=== PATIENT | female | born 1970 | race Caucasian/White ===

== ENCOUNTER → 2017-02-06 | Outpatient (CLI) | payer OTHER ==
[2017-02-06 19:04] LABS: ALT 71 U/L (9-52); AST 74 U/L (14-36); Alkaline Phosphatase 103 U/L (38-126); Anion Gap 12 mmol/L; Blood Urea Nitrogen 13 mg/dL (7-17); Calcium 9.3 mg/dL (8.4-10.2); Carbon Dioxide 25 mmol/L (22-30); Chloride 104 mmol/L (98-107); Cholesterol 179 mg/dL (<200); Glucose 83 mg/dL (74-99); HDL Cholesterol 51 mg/dL (40-60); Non-African American GFR(MDRD) >60 (>60 ml/min/1.73 sqM); Sodium 141 mmol/L (137-145); Total Bilirubin 0.3 mg/dL (0.2-1.3); Total Protein 7.1 g/dL (6.3-8.2); Triglycerides 94 mg/dL (<150)
[2017-02-06 19:48] LABS: Vitamin B12 686 pg/mL (239-931)
[2017-02-06 22:42] LABS: Basophils % (A) 1 %; CH 21.8; CHCM 28.3; Eosinophils # (A) 0.6 k/uL (0-0.7); Eosinophils % (A) 11 %; HCT 32.6 % (34.0-46.0); HDW 3.03; Hypochromasia Marked; Luc # (Auto) 0.09; Luc % (Auto) 2; Lymphocytes # (A) 1.6 k/uL (1.0-4.8); Lymphocytes % (A) 32 %; MCH 23.6 pg (25.0-35.0); MCHC 30.5 g/dL (31.0-37.0); MCV 77.3 fL (80.0-100.0); Mean Platelet Volume 7.7; Microcytosis Slight; Monocytes # (A) 0.3 k/uL (0-1.0); Monocytes % (A) 6 %; Neutrophils # (A) 2.4 k/uL (1.3-7.7); Neutrophils % (A) 49 %; RBC 4.23 m/uL (3.80-5.40); RDW 15.5 % (11.5-15.5); WBC (Perox) 5.28
[2017-02-06 22:51] LABS: Polychromasia Present
== END | disposition home or self-care (01) ==
LOC: MMGSC 17:43
PROVIDERS: ATTEND Family Medicine
DX: R82.90 Unspecified abnormal findings in urine (principal)
CPT/HCPCS: 36415; 80053; 80061; 82306; 82607; 84439; 84443; 85025; 87086

== ENCOUNTER → 2017-02-22 | Outpatient (CLI) | payer OTHER ==
[2017-02-22 19:12] LABS: Iron 29 ug/dL (37-170)
[2017-02-22 19:23] LABS: % Iron Saturation 6.2 % (20-50); Total Iron Binding Capacity 471 ug/dL (265-497)
[2017-02-22 20:33] LABS: Hepatitis B Surface Ag Index 0.07
[2017-02-22 20:38] LABS: Hepatitis B Core IgM Index 0.05
[2017-02-22 20:50] LABS: Hepatitis C Virus IgG Ab Negative (Negative)
== END ==
LOC: MMGSC 16:48
PROVIDERS: ATTEND Family Medicine
DX: R79.89 Other specified abnormal findings of blood chemistry (principal)
CPT/HCPCS: 36415; 80074; 82103; 82390; 82728; 83516; 83540; 83550

== ENCOUNTER → 2017-04-27 | Outpatient (CLI) | payer OTHER ==
[2017-04-27 21:09] LABS: Anisocytosis Slight; CH 24.9; CHCM 29.7; HCT 33.3 % (34.0-46.0); HDW 2.98; HGB 9.9 gm/dL (11.4-16.0); Hypochromasia Marked; MCH 25.1 pg (25.0-35.0); MCHC 29.9 g/dL (31.0-37.0); Mean Platelet Volume 8.4; RBC 3.96 m/uL (3.80-5.40); RDW 16.4 % (11.5-15.5); WBC 6.9 k/uL (3.8-10.6); WBC (Perox) 7.75
[2017-04-27 21:33] LABS: Add Differential Manual Differential
[2017-04-27 21:37] LABS: Manual Review Performed; Nucleated Red Blood Cells 0 /100 WBC (0-0); Ovalocytes Present; Total Cells Counted 100
== END ==
LOC: MMGSC 15:47
PROVIDERS: ATTEND Family Medicine
DX: N92.0 Excessive and frequent menstruation with regular cycle (principal); E04.9 Nontoxic goiter, unspecified
CPT/HCPCS: 36415; 84439; 84443; 85025

== ENCOUNTER → 2017-08-27 | Outpatient (CLI) | payer OTHER ==
[2017-08-27 19:13] LABS: Anisocytosis Slight; Basophils % (A) 1 %; Eosinophils # (A) 0.9 k/uL (0-0.7); Eosinophils % (A) 15 %; HCT 35.6 % (34.0-46.0); HGB 10.3 gm/dL (11.4-16.0); Hypochromasia Marked; Lymphocytes # (A) 1.3 k/uL (1.0-4.8); Lymphocytes % (A) 22 %; MCH 22.5 pg (25.0-35.0); MCHC 28.9 g/dL (31.0-37.0); Mean Platelet Volume 7.6; Microcytosis Slight; Monocytes # (A) 0.3 k/uL (0-1.0); Monocytes % (A) 6 %; Neutrophils # (A) 3.3 k/uL (1.3-7.7); Neutrophils % (A) 55 %; Platelet Count 348 k/uL (150-450); RBC 4.56 m/uL (3.80-5.40); RDW 17.2 % (11.5-15.5)
[2017-08-27 19:26] LABS: T4, Free (Free Thyroxine) 0.93 ng/dL (0.78-2.19)
== END | disposition home or self-care (01) ==
LOC: MMGSC 15:51
PROVIDERS: ATTEND Family Medicine
DX: E03.9 Hypothyroidism, unspecified (principal); D64.9 Anemia, unspecified; R63.5 Abnormal weight gain
CPT/HCPCS: 36415; 84439; 84443; 85025

== ENCOUNTER → 2017-11-23 | Outpatient (CLI) | payer OTHER ==
[2017-11-23 20:39] LABS: Basophils % (A) 0 %; Eosinophils # (A) 1.2 k/uL (0-0.7); Eosinophils % (A) 17 %; HCT 31.2 % (34.0-46.0); HGB 9.3 gm/dL (11.4-16.0); Hypochromasia Marked; Lymphocytes # (A) 1.7 k/uL (1.0-4.8); Lymphocytes % (A) 24 %; MCH 22.2 pg (25.0-35.0); MCHC 29.7 g/dL (31.0-37.0); MCV 74.7 fL (80.0-100.0); Microcytosis Slight; Monocytes # (A) 0.5 k/uL (0-1.0); Monocytes % (A) 7 %; Neutrophils # (A) 3.6 k/uL (1.3-7.7); Neutrophils % (A) 51 %; Platelet Count 348 k/uL (150-450); Poikilocytosis Slight; RBC 4.18 m/uL (3.80-5.40); RDW 14.9 % (11.5-15.5); WBC 7.1 k/uL (3.8-10.6)
[2017-11-23 21:00] LABS: T4, Free (Free Thyroxine) 1.12 ng/dL (0.78-2.19)
[2017-11-24 00:37] LABS: Vitamin D 25 Hydroxy 17.2 ng/mL (30.0-100.0)
== END | disposition home or self-care (01) ==
LOC: MMGSC 16:49
PROVIDERS: ATTEND Family Medicine
DX: E03.9 Hypothyroidism, unspecified (principal); J02.9 Acute pharyngitis, unspecified; R53.83 Other fatigue
CPT/HCPCS: 36415; 82306; 82607; 84439; 84443; 85025; 86308

== ENCOUNTER → 2018-03-20 | Outpatient (CLI) | payer OTHER ==
--- NOTE | 2018-03-20 08:24 | US ---
EXAMINATION TYPE: US thyroid st tissue head/neck DATE OF EXAM: 03/20/2018 COMPARISON: NONE CLINICAL HISTORY: E03.9 Hypothyroidism,E06.3 Autoimmune thyroiditis. Pt states difficulty swallowing, on thyroid medications x 1 year GLAND SIZE: Right Lobe: 4.8 x 2.2 x 2.3 cm Overall Parenchyma: heterogenous Left Lobe: 4.9 x 2.0 x 1.6 cm Overall Parenchyma: heterogeneous Isthmus Thickness: 0.5 cm Bilateral neck scanned, lymph node chain right lateral neck with largest node AP measurement= 0.5 cm. Bilateral thyroid grossly heterogeneous. IMPRESSION: Heterogeneous thyroid gland could represent underlying thyroiditis. Gland appears enlarged.
[2018-03-20 08:37] LABS: T4, Free (Free Thyroxine) 0.92 ng/dL (0.78-2.19)
== END | disposition home or self-care (01) ==
LOC: RADUSWWP 06:58
PROVIDERS: ATTEND Internal Medicine Endocrinology, Diabetes & Metabolism
DX: E04.0 Nontoxic diffuse goiter (principal); E03.9 Hypothyroidism, unspecified; E06.3 Autoimmune thyroiditis
CPT/HCPCS: 36415; 76536; 84439; 84443

== ENCOUNTER 2018-07-05 07:33 | Day surgery (SDC) | payer OTHER ==
[2018-07-03 14:58] VITALS: BMI 29.7
[~2018-07-05 07:33] MED LIST: LACTATED RINGERS 1,000 ML IV SCH
[2018-07-05 07:50] VITALS: RESP 18; TEMP 97.2
[2018-07-05] MEDS ORDERED: LIDOCAINE 1% 20 ML VIAL (10MG/ML) FOR IV START INTRADERMA ONE (07:53)
[2018-07-05] MEDS ORDERED: PROPOFOL 10 MG/ML 20 ML VIAL IV ONE (07:59)
--- NOTE | 2018-07-05 08:24 | P.PCN ---
Date of Procedure: 07/05/18 Procedure(s) Performed: Brief history: Patient is a pleasant 48-year-old white female, scheduled for an elective upper endoscopy as well as colonoscopy as a part of evaluation of GERD and iron deficiency anemia. Procedure performed: Esophagogastroduodenoscopy with biopsy Colonoscopy Preoperative diagnosis: GERD/iron deficiency anemia [place] [facility] [place]: After informed consent was obtained from the patient was brought into the endoscopy unit and IV sedation was administered by anesthesia under continuous monitoring. Initially upper endoscopy was done. The Olympus GF 160 video endoscope was inserted inserted into the mouth and esophagus intubated without any difficulty and was gradually advanced into the stomach and duodenum and carefully examined. The bulb and second part of the duodenum appeared normal. Multiple biopsies were done from the duodenum to rule out celiac disease. The scope was then withdrawn into the stomach adequately insufflated with air and upon careful examination the antrum had mild gastritis and biopsies were done from this area.. There was a 1 cm gastric ulcer in the fundus of the stomach which was biopsied. The rest of the body, cardia and fundus appeared normal. The scope was then withdrawn into the esophagus. The GE junction was located at 35 cm to the incisors. There was a moderate size hiatal hernia with multiple Can erosions identified. The GE junction had linear erosions or ulcerations in the distal esophagus consistent with LA grade C reflux esophagitis. Rest of the esophagus appeared normal. Patient tolerated the procedure well. At this time the patient continued to remain sedation. Initial digital rectal examination was normal. Olympus CF 160 video colonoscope was then inserted into the rectum and gradually advanced to the cecum without any difficulty. Careful examination was performed as the scope was gradually being withdrawn. The prep was excellent. The cecum, ascending colon, transverse colon, descending colon, sigmoid colon and rectum appeared normal. Retroflexion was performed in the rectum and no lesions were noted. Patient tolerated the procedure well. Impression: 1. Upper endoscopy revealed: a) linear erosions in the distal esophagus consistent with LA grade C reflux esophagitis b)1 cm gastric ulcer in the fundus of the stomach c)Small to moderate size hiatal hernia with Can erosions 2. Colonoscopy was essentially within normal limits with no evidence of colitis or colorectal neoplasia Recommendations: Findings of this examination were discussed with the patient as well as her family. She was advised to follow with the biopsy results. She'll be started on Prilosec 20 mg twice daily and was educated about antireflux measures. she will continue with iron supplements daily and have CBC monitored on a frequent basis. She will be seen in the office in 6 weeks.
[2018-07-05 08:43] VITALS: BP 105/70; PULSE 64
== END 2018-07-05 09:15 | disposition home or self-care (01) ==
LOC: ORWHC2ENDO 07:33
PROVIDERS: ATTEND Internal Medicine Gastroenterology
DX: K29.50 Unspecified chronic gastritis without bleeding (principal); K25.9 Gastric ulcer, unspecified as acute or chronic, without hemorrhage or perforation; K44.9 Diaphragmatic hernia without obstruction or gangrene; K22.10 Ulcer of esophagus without bleeding; K20.9 Esophagitis, unspecified; D50.9 Iron deficiency anemia, unspecified; E07.9 Disorder of thyroid, unspecified; Z79.890 Hormone replacement therapy; Z79.899 Other long term (current) drug therapy
CPT/HCPCS: 81025; 88305; 45378; 43239; J2704

== ENCOUNTER → 2019-04-16 | Outpatient (CLI) | payer OTHER ==
--- NOTE | 2019-04-16 11:25 | CT ---
EXAMINATION TYPE: CT angio chest DATE OF EXAM: 04/16/2019 COMPARISON: NONE HISTORY: SOB, elevated d dimer CT DLP: 342.3 mGycm. Automated Exposure Control for Dose Reduction was Utilized. CONTRAST: CTA scan of the thorax is performed with IV Contrast, patient injected with 100 mL of Isovue 370, pul monary embolism protocol. MIP Images are created on CT scanner and reviewed. FINDINGS: LUNGS: Some patchy dependent atelectasis in the bilateral lower lobes. No suspicious nodules or brigid s. No pleural effusion or pneumothorax seen bilaterally. No suspicious focal consolidation. MEDIASTINUM: There is suboptimal study with near equal contrast a right left heart systems and some h eterogeneity but no CT evidence for acute pulmonary embolism. There are no greater than 1 cm hilar o r mediastinal lymph nodes. No cardiomegaly or pericardial effusion is seen. Involving type arch is seen which is normal variant. Small to moderate size hiatal hernia. OTHER: No additional significant abnormality is seen. IMPRESSION: No CT evidence for acute pulmonary embolism. No suspicious acute pulmonary process.
== END | disposition home or self-care (01) ==
LOC: RADCTMAIN 10:37
PROVIDERS: ATTEND Family Medicine
DX: R06.02 Shortness of breath (principal); R79.1 Abnormal coagulation profile
CPT/HCPCS: 71275; Q9967

== ENCOUNTER → 2019-07-04 | Outpatient (CLI) | payer OTHER ==
--- NOTE | 2019-07-04 18:06 | US ---
EXAMINATION TYPE: US kidneys/renal and bladder DATE OF EXAM: 07/04/2019 COMPARISON: NONE CLINICAL HISTORY: R35.0 Urinary frequency. Urinary urgency. EXAM MEASUREMENTS: Right Kidney: 11.4 x 5.1 x 4.3 cm Left Kidney: 11.0 x 5.2 x 4.4 cm Post Void Residual Volume: 0.7 mL Right Kidney: No hydronephrosis, nephrolithiasis or masses seen Left Kidney: No hydronephrosis, nephrolithiasis or masses seen Bladder: not fully distended/prepped Bilateral Jets seen: yes. Bladder evaluation is Limited by incomplete distention Normal Post Void Residual: yes Incidental findings of couple of Nabothian cysts in enlarged uterus with larger Nabothian cyst in cer vix = 1.8 x 2.3 x 1.9cm and smaller Nabothian cyst = 1.6 x 1.6 x 1.5cm IMPRESSION: No hydronephrosis or nephrolithiasis. Incidental note made of nabothian cysts as discussed above.
== END | disposition home or self-care (01) ==
LOC: RADUSWWP 16:07
PROVIDERS: ATTEND Urology
DX: R35.0 Frequency of micturition (principal)
CPT/HCPCS: 76770

== ENCOUNTER → 2022-11-22 | Day surgery (SDC) | payer BC, OTHER ==
[2022-11-17 16:16] VITALS: BMI 24.6
[~2022-11-22] MED LIST changes: +ACETAMINOPHEN TAB 500 MG TAB PO ONE; +ALPRAZolam 0.25 MG TAB PO PRN; +ALPRAZolam 0.5 MG TAB PO PRN; +ASPIRIN 325 MG TAB PO ONE; +ATORVASTATIN 80 MG TAB PO ONE; +HEPARIN SODIUM 1,000 UN/ML (10ML VL) IVP ONE; +HEPARIN SODIUM 1,000 UN/ML (10ML VL) ONE; +HEPARIN SODIUM,PORCINE 10,000 UNIT in SODIUM CHLORIDE 0.9% 1,000 ML IRRIGATION PRN; +HEPARIN SODIUM,PORCINE 2,500 UNIT in SODIUM CHLORIDE 0.9% 250 ML IRRIGATION PRN; +IOPAMIDOL-370 125ML BTL INJ ONE; -LACTATED RINGERS 1,000 ML IV SCH; +LIDOCAINE 1% PF 10 MG/ML (5 ML AMP) SQ ONE; +NITROGLYCERIN SL TABS 0.4 MG TAB SUBLINGUAL PRN; +SODIUM CHLORIDE 0.9% 1,000 ML IV ONE; +SODIUM CHLORIDE 0.9% 1,000 ML in EMPTY BAG 1 BAG IV SCH; +VERAPAMIL 2.5 MG/ML 2 ML AMP ONE; +VERAPAMIL SYRINGE (5 MG/10 ML) INTRAARTER ONE; +fentaNYL (PF) 50 MCG/ML 2 ML AMP IVP ONE; +fentaNYL (PF) 50 MCG/ML 2 ML AMP ONE
[2022-11-22 10:24] VITALS: RESP 16; TEMP 97.8
[2022-11-22 10:43] LABS: African American GFR (CKD) >90 (>60 ml/min/1.73 sqM); Anion Gap 6 mmol/L; Blood Urea Nitrogen 14 mg/dL (7-17); Calcium 8.7 mg/dL (8.4-10.2); Carbon Dioxide 28 mmol/L (22-30); Chloride 100 mmol/L (98-107); Glucose 92 mg/dL (74-99); Non-African American GFR(CKD) >90 (>60 ml/min/1.73 sqM); Potassium 3.8 mmol/L (3.5-5.1); Sodium 134 mmol/L (137-145)
[2022-11-22 11:05] LABS: Basophils % (A) 1 %; Eosinophils # (A) 0.6 k/uL (0-0.7); Eosinophils % (A) 10 %; HCT 37.8 % (34.0-46.0); HGB 12.7 gm/dL (11.4-16.0); Lymphocytes # (A) 1.4 k/uL (1.0-4.8); Lymphocytes % (A) 23 %; MCH 28.4 pg (25.0-35.0); MCHC 33.5 g/dL (31.0-37.0); MCV 84.8 fL (80.0-100.0); Mean Platelet Volume 7.1; Monocytes # (A) 0.3 k/uL (0-1.0); Monocytes % (A) 5 %; Neutrophils # (A) 3.7 k/uL (1.3-7.7); Neutrophils % (A) 60 %; Platelet Count 363 k/uL (150-450); Poikilocytosis Slight; RBC 4.46 m/uL (3.80-5.40); RDW 13.1 % (11.5-15.5); WBC 6.1 k/uL (3.8-10.6)
[2022-11-22] MEDS: MIDAZOLAM 2 MG/2 ML VIAL IVP ONE ×2 (13:09→13:14)
--- NOTE | 2022-11-22 13:46 | P.CARDCATH ---
Description of Procedure: PROCEDURES PERFORMED: Left heart catheterization, bilateral coronary angiography INDICATION: Continued chest pain and shortness breath with family history of CAD concerning for angina CONSENT:I have discussed the risks, benefits and alternative therapies for the above-mentioned procedure and for both sedation/analgesia as well as necessary blood product administration, if indicated, as they pertain to this patient. The patient has indicated understanding and acceptance of the risks and procedures discussed. PROCEDURE: After the risks, benefits and alternatives of the above mentioned procedure explained in detail with the patient, informed consent was obtained. Patient was taken to the catheterization lab and prepped and draped in usual fashion. 1% lidocaine was used to anesthetize the right radial artery. A 6- Liberian sheath was placed in the right radial artery using modified Seldinger technique. Left coronary angiography was performed with a 5-Liberian JL 3.5 catheter and right coronary angiography was performed with a 5-Liberian JR5 catheter in various views. A 5-Liberian FR5 catheter was inserted into the left ventricle and pressure measurements were obtained. The right radial sheath was removed and a TR band was placed with hemostasis achieved. The patient tolerated the procedure well. Patient was transported back to the post catheterization holding area in stable condition. Conscious Sedation: Patient was monitored under the direct supervision of myself for conscious sedation using Versed and fentanyl for a total duration of 10 minutes HEMODYNAMICS: Aorta: 112/76 LV: 110/5, LVEDP: 16 SELECTIVE CORONARY ARTERIOGRAPHY: LEFT MAIN: The left main is a large caliber vessel which bifurcates into the LAD and circumflex. There is no significant stenosis. LEFT ANTERIOR DESCENDING CORONARY ARTERY: LAD is a large caliber vessel which wraps around to the apex. There is no significant stenosis. LEFT CIRCUMFLEX CORONARY ARTERY: Left circumflex is a moderate caliber vessel without significant stenosis. RIGHT CORONARY ARTERY: The right coronary artery is a large caliber vessel which gives off a PDA and PLV branch and is the dominant vessel. There is no significant stenosis. FINAL IMPRESSION: 1. Normal coronary arteries as described above. 2. High normal left sided filling pressures PLAN: 1. Aggressive risk factor modification per most recent ACC/AHA guidelines. 2. Follow-up in the office in 1-2 weeks.
[2022-11-22 15:53] VITALS: BP 117/82; PULSE 65
== END ==
LOC: CATHCVL 10:03
PROVIDERS: ATTEND Internal Medicine
DX: R07.9 Chest pain, unspecified (principal)
CPT/HCPCS: 93458; 80048; 85025; C1769 ×2; C1894; J2250; J2001; J3010; J1644; Q9967

== ENCOUNTER 2023-08-23 07:55 | Day surgery (SDC) | payer BC, OTHER ==
[~2023-08-23 07:55] MED LIST changes: -ACETAMINOPHEN TAB 500 MG TAB PO ONE; -ALPRAZolam 0.25 MG TAB PO PRN; -ALPRAZolam 0.5 MG TAB PO PRN; -ASPIRIN 325 MG TAB PO ONE; -ATORVASTATIN 80 MG TAB PO ONE; -HEPARIN SODIUM 1,000 UN/ML (10ML VL) IVP ONE; -HEPARIN SODIUM 1,000 UN/ML (10ML VL) ONE; -HEPARIN SODIUM,PORCINE 10,000 UNIT in SODIUM CHLORIDE 0.9% 1,000 ML IRRIGATION PRN; -HEPARIN SODIUM,PORCINE 2,500 UNIT in SODIUM CHLORIDE 0.9% 250 ML IRRIGATION PRN; -IOPAMIDOL-370 125ML BTL INJ ONE; -LIDOCAINE 1% PF 10 MG/ML (5 ML AMP) SQ ONE; -NITROGLYCERIN SL TABS 0.4 MG TAB SUBLINGUAL PRN; -SODIUM CHLORIDE 0.9% 1,000 ML IV ONE; +SODIUM CHLORIDE 0.9% 1,000 ML IV SCH; -SODIUM CHLORIDE 0.9% 1,000 ML in EMPTY BAG 1 BAG IV SCH; -VERAPAMIL 2.5 MG/ML 2 ML AMP ONE; -VERAPAMIL SYRINGE (5 MG/10 ML) INTRAARTER ONE; -fentaNYL (PF) 50 MCG/ML 2 ML AMP IVP ONE; -fentaNYL (PF) 50 MCG/ML 2 ML AMP ONE
[2023-08-23] MEDS ORDERED: SODIUM CHLORIDE 0.9% 500 ML 500 ML IV ONE (08:04)
[2023-08-23 08:20] VITALS: BP 127/72; RESP 16; TEMP 97.4
[2023-08-23 10:27] VITALS: PULSE 70
--- NOTE | 2023-08-28 16:34 | P.EPPROC ---
- EP Procedure Note Electrophysiology Procedure Note: Diagnosis Recurrent presyncope Twelve-lead EKG shows sinus rhythm normal RI narrow QRS normal ST segments normal QT interval Tilt table test per protocol Baseline blood pressure 122/84 mmHg pulse rate 61 beats a minute Patient was turned to the 70 degrees per protocol No significant change in heart rate or blood pressure She complained of slight dizziness but her blood pressure and heart rate remain normal Very mild orthostasis observed upon assuming upright position, 10 mm drop which was transient Impression Normal twelve-lead EKG No evidence for neurocardiogenic syncope or dysautonomia 10 mm drop in blood pressure upon standing which was very brief. She was a little dizzy at that time Very mild transient orthostasis
== END 2023-08-23 10:02 | disposition home or self-care (01) ==
LOC: CATHEP 07:55
PROVIDERS: ATTEND Internal Medicine Clinical Cardiac Electrophysiology
DX: R55 Syncope and collapse (principal); Z82.49 Family history of ischemic heart disease and other diseases of the circulatory system; Z79.899 Other long term (current) drug therapy
CPT/HCPCS: 93660

== ENCOUNTER 2024-01-06 14:36 | Emergency (ER) | payer BC, OTHER ==
[2024-01-06 14:43] VITALS: BP 132/79; PULSE 75; RESP 18; TEMP 97.4
[2024-01-06 15:07] LABS: Anisocytosis Slight; Basophils # (A) 0.1 k/uL (0-0.2); Basophils % (A) 1 %; Eosinophils # (A) 0.5 k/uL (0-0.7); Eosinophils % (A) 10 %; HCT 28.4 % (34.0-46.0); HGB 7.6 gm/dL (11.4-16.0); Hypochromasia Marked; Lymphocytes % (A) 22 %; MCH 18.1 pg (25.0-35.0); MCHC 26.7 g/dL (31.0-37.0); MCV 67.7 fL (80.0-100.0); Mean Platelet Volume 8.5; Microcytosis Marked; Monocytes # (A) 0.3 k/uL (0-1.0); Monocytes % (A) 6 %; Neutrophils # (A) 2.7 k/uL (1.3-7.7); Neutrophils % (A) 58 %; Platelet Count 309 k/uL (150-450); Poikilocytosis Slight; RBC 4.19 m/uL (3.80-5.40); RDW 16.6 % (11.5-15.5); WBC 4.6 k/uL (3.8-10.6)
[2024-01-06 15:15] LABS: ALT 14 U/L (4-34); AST 35 U/L (14-36); African American GFR (CKD) >90 (>60 ml/min/1.73 sqM); Albumin 4.3 g/dL (3.5-5.0); Alkaline Phosphatase 89 U/L (38-126); Anion Gap 7 mmol/L; Blood Urea Nitrogen 15 mg/dL (7-17); Calcium 8.6 mg/dL (8.4-10.2); Carbon Dioxide 24 mmol/L (22-30); Chloride 107 mmol/L (98-107); Glucose 105 mg/dL (74-99); Non-African American GFR(CKD) >90 (>60 ml/min/1.73 sqM); Sodium 138 mmol/L (137-145); Total Bilirubin 0.5 mg/dL (0.2-1.3); Total Protein 6.6 g/dL (6.3-8.2)
[2024-01-06 15:20] LABS: Partial Thromboplastin Time 24.3 sec (22.0-30.0); Prothrombin Time 10.8 sec (10.0-12.5)
--- NOTE | 2024-01-06 15:33 | ED ---
Recheck HPI - General Chief Complaint: Recheck/Abnormal Lab/Rx Stated Complaint: Abn Labs Time Seen by Provider: 01/06/24 14:45 Source: patient Mode of arrival: ambulatory Limitations: no limitations - History of Present Illness Initial Comments: This patient is a 53-year-old woman with history of anemia, previously requiring transfusion, who presents with report that she was called and told that her hemoglobin was 6.4. She states that had been checked in the clinic as part of routine follow-up. She states she does get exertional dyspnea and light headedness. She has no chest pain, dyspnea, palpitations, diaphoresis at rest. She does have dark stools but she states she is taking an iron supplement. She has not noticed any other source of bleeding. She has previously followed with hematology and they told her they were not able to find the reason for her anemia. Complaint: abnormal lab Onset/Timin -: days(s) Returns Today for: Called Because of Abnormal Lab/Test Symptoms Since Prior Visit: no new symptoms Context: called for abnormal lab result Associated Symptoms: other (Exertional dyspnea/palpitations) - Related Data Home Medications Medication Instructions Recorded Confirmed ALPRAZolam [Xanax] 0.5 mg PO TID PRN 07/03/18 12/17/23 Ibuprofen [Motrin Ib] 600 mg PO DAILY PRN 07/03/18 12/17/23 Acetaminophen [Tylenol] 325 - 650 mg PO DIRECTED PRN 11/17/22 12/17/23 Gabapentin 400 mg PO BID 11/17/22 12/17/23 Isosorbide Mononitrate [Isosorbide 30 mg PO QAM 08/20/23 12/17/23 Mononitrate ER] QUEtiapine [SEROquel] 50 mg PO HS 08/20/23 12/17/23 Vilazodone HCl [Viibryd] 20 mg PO QAM 08/20/23 12/17/23 Albuterol Inhaler [Ventolin Hfa 1 - 2 puff INHALATION Q6H PRN 12/10/23 12/17/23 Inhaler] Ferrous Sulfate [Feosol] 325 mg PO DAILY 12/10/23 12/17/23 Pantoprazole Sodium 40 mg PO DAILY 12/10/23 12/17/23 buPROPion HCL [buPROPion HCL Xl] 150 mg PO QAM 12/10/23 12/17/23 Allergies Allergy/AdvReac Type Severity Reaction Status Date / Time No Known Allergies Allergy Verified 01/06/24 14:43 Review of Systems ROS Statement: Those systems with pertinent positive or pertinent negative responses have been documented in the HPI. ROS Other: All systems not noted in ROS Statement are negative. Constitutional: Denies: fever, chills, weakness Eyes: Denies: vision change Respiratory: Denies: cough, dyspnea Cardiovascular: Reports: dyspnea on exertion. Denies: chest pain, palpitations, orthopnea, edema, syncope Gastrointestinal: Reports: melena. Denies: abdominal pain, vomiting, diarrhea, hematochezia Genitourinary: Denies: dysuria, hematuria Musculoskeletal: Denies: back pain Skin: Denies: rash Neurological: Denies: headache, weakness Hematological/Lymphatic: Denies: easy bleeding Past Medical History Past Medical History: Asthma, GERD/Reflux, Supraventricular Tachycardia (SVT), Thyroid Disorder Additional Past Medical History / Comment(s): Please see Dr. Macias's H&P. Palpitations,vertigo and racing heart, DIFFICULTY SWALLOWING. ANEMIA. Sciaticia on occasion. History of Any Multi-Drug Resistant Organisms: MRSA Date of last positivie culture/infection: 02/08/21 MDRO Source:: MRSA FACE Past Surgical History: Cardiac Ablation, Section, Cholecystectomy, Heart Catheterization, Orthopedic Surgery Additional Past Surgical History / Comment(s): RT KNEE SX X 2, LT KNEE SX X1. RT ELBOW SX X 2. RT SHOULDER SX. EGD X3 Past Anesthesia/Blood Transfusion Reactions: No Reported Reaction Additional Past Anesthesia/Blood Transfusion Reaction / Comment(s): no problems w/ prior blood transfusion Past Psychological History: Anxiety, Depression, PTSD Smoking Status: Never smoker Past Alcohol Use History: None Reported Past Drug Use History: None Reported - Past Family History Mother Family Medical History: Coronary Artery Disease (CAD), CVA/TIA Additional Family Medical History / Comment(s): MOTHER OF STROKE. General Exam Limitations: no limitations General appearance: alert, in no apparent distress Head exam: Present: atraumatic, normocephalic Eye exam: Present: normal appearance, other (Conjunctival pallor). Absent: scleral icterus, conjunctival injection ENT exam: Present: normal oropharynx, other (Mucosal pallor) Neck exam: Present: normal inspection Respiratory exam: Present: normal lung sounds bilaterally. Absent: respiratory distress, wheezes, rales, rhonchi, stridor, accessory muscle use Cardiovascular Exam: Present: regular rate, normal rhythm, normal heart sounds. Absent: systolic murmur, diastolic murmur, rubs, gallop GI/Abdominal exam: Present: soft. Absent: distended, tenderness, guarding, rebound, rigid, mass Extremities exam: Present: normal inspection, normal capillary refill. Absent: pedal edema, calf tenderness Back exam: Present: normal inspection. Absent: CVA tenderness (R), CVA tenderness (L) Neurological exam: Present: alert Skin exam: Present: warm, dry, intact, pallor. Absent: rash Course Vital Signs 01/06/24 14:40 Temperature 97.4 F L Pulse Rate 75 Respiratory 18 Rate Blood Pressure 132/79 O2 Sat by Pulse 99 Oximetry Medical Decision Making - Medical Decision Making Patient is a 53-year-old woman with history of anemia presenting with concern that her hemoglobin had tested low. She is having exertional dyspnea and some lightheadedness. The patient's labs did show hemoglobin 7.4 today. I did attempt to reach out to hematology to see if they would like us to give transfusion. There was a delay in them calling us back and it appears that the patient had left. I did discuss the case with the modern greek studies professor and they will reach out to the patient and attempt to have her come to clinic for further care. The patient did subsequently call back and the further care and follow-up were discussed over the phone. Was pt. sent in by a medical professional or institution ([facility], TRAVEL RN, urgent care, hospital, or [place] health care facility...) When possible be specific @ -Yes, patient sent by primary related to low hemoglobin Did you speak to anyone other than the patient for history (EMS, parent, family, police, friend...)? What history was obtained from this source @ -[No] Did you review nursing and triage notes (agree or disagree)? Why? @ -[I reviewed and agree with nursing and triage notes] Were old charts reviewed (outside hosp., previous admission, EMS record, old EK G, old radiological studies, urgent care reports/EKG's, [place] health care facility records)? Report findings @ -[Yes, old charts were reviewed] Differential Diagnosis (chest pain, altered mental status, abdominal pain women, abdominal pain men, vaginal bleeding, weakness, fever, dyspnea, syncope, headache, dizziness, GI bleed, back pain, seizure, CVA, palpatations, mental health, musculoskeletal)? @ -[Differential Weakness: Hypoglycemia, shock, sepsis, hyponatremia, anemia, infection, IA, ETOH, adverse medicine reaction, overdose, stroke, this is not meant to be an all-inclusive list. EKG interpreted by me (3pts min.). @ -[As above] X-rays interpreted by me (1pt min.). @ -[None done] CT interpreted by me (1pt min.). @ -[None done] U/S interpreted by me (1pt. min.). @ -[None done] What testing was considered but not performed or refused? (CT, X-rays, U/S, labs)? Why? @ -[None] What meds were considered but not given or refused? Why? @ -[None] Did you discuss the management of the patient with other professionals (professionals i.e. , PA, TRAVEL RN, lab, RT, psych nurse, hospital social worker, security flex utility officer, teacher, command center officer, leather case finisher)? Give summary @ -[No] Was smoking cessation discussed for >3mins.? @ -[No] Was critical care preformed (if so, how long)? @ -[No] Were there social determinants of health that impacted care today? How? (Homelessness, low income, unemployed, alcoholism, drug addiction, transportation, low edu. Level, literacy, decrease access to med. care, [facility], rehab)? @ -[No] Was there de-escalation of care discussed even if they declined (Discuss DNR or withdrawal of care, Hospice)? DNR status @ -[No] What co-morbidities impacted this encounter? (DM, HTN, Smoking, COPD, CAD, Cancer, CVA, ARF, Chemo, Hep., AIDS, mental health diagnosis, sleep apnea, morbid obesity)? @ -[History of anemia requiring transfusions Was patient admitted / discharged? Hospital course, mention meds given and route, prescriptions, significant lab abnormalities, going to OR and other pertinent info. @ -[See the course above, the patient left while I was waiting for return call from the modern greek studies professor. Undiagnosed new problem with uncertain prognosis? @ -[No] Drug Therapy requiring intensive monitoring for toxicity (Heparin, Nitro, Insulin, Cardizem)? @ -[No] Were any procedures done? @ -[No] Diagnosis/symptom? @ -[Acute on chronic anemia Acute, or Chronic, or Acute on Chronic? @ -[ Uncomplicated (without systemic symptoms) or Complicated (systemic symptoms)? @ -[Complicated by generalized weakness and fatigue Side effects of treatment? @ -[No] Exacerbation, Progression, or Severe Exacerbation? @ -[No] Poses a threat to life or bodily function? How? (Chest pain, USA, IA, pneumonia, PE, COPD, DKA, ARF, appy, cholecystitis, CVA, Diverticulitis, Homicidal, Suicidal, threat to staff... and all critical care pts) @ -[There is risk but at this point low, appropriate further care and follow-up were discussed - Lab Data Result diagrams: 01/06/24 14:55 01/06/24 14:55 Lab Results 01/06/24 01/06/24 01/06/24 Range/Units 14:55 14:55 14:55 WBC 4.6 (3.8-10.6) k/uL RBC 4.19 (3.80-5.40) m/uL Hgb 7.6 L (11.4-16.0) gm/dL Hct 28.4 L (34.0-46.0) % MCV 67.7 L (80.0-100.0) fL MCH 18.1 L (25.0-35.0) pg MCHC 26.7 L (31.0-37.0) g/dL RDW 16.6 H (11.5-15.5) % Plt Count 309 (150-450) k/uL MPV 8.5 Neutrophils % 58 % Lymphocytes % 22 % Monocytes % 6 % Eosinophils % 10 % Basophils % 1 % Neutrophils # 2.7 (1.3-7.7) k/uL Lymphocytes # 1.0 (1.0-4.8) k/uL Monocytes # 0.3 (0-1.0) k/uL Eosinophils # 0.5 (0-0.7) k/uL Basophils # 0.1 (0-0.2) k/uL Hypochromasia Marked Poikilocytosis Slight Anisocytosis Slight Microcytosis Marked PT 10.8 (10.0-12.5) sec INR 1.0 (<1.2) APTT 24.3 (22.0-30.0) sec Sodium 138 (137-145) mmol/L Potassium 4.0 (3.5-5.1) mmol/L Chloride 107 (98-107) mmol/L Carbon Dioxide 24 (22-30) mmol/L Anion Gap 7 mmol/L BUN 15 (7-17) mg/dL Creatinine 0.69 (0.52-1.04) mg/dL Est GFR (CKD-EPI)AfAm >90 (>60 ml/min/1.73 sqM) Est GFR (CKD-EPI)NonAf >90 (>60 ml/min/1.73 sqM) Glucose 105 H (74-99) mg/dL Calcium 8.6 (8.4-10.2) mg/dL Total Bilirubin 0.5 (0.2-1.3) mg/dL AST 35 (14-36) U/L ALT 14 (4-34) U/L Alkaline Phosphatase 89 (38-126) U/L Total Protein 6.6 (6.3-8.2) g/dL Albumin 4.3 (3.5-5.0) g/dL Blood Type Blood Type Confirm Blood Type Recheck Bld Type Recheck Status Antibody Screen Spec Expiration Date 01/06/24 01/06/24 Range/Units 15:05 15:10 WBC (3.8-10.6) k/uL RBC (3.80-5.40) m/uL Hgb (11.4-16.0) gm/dL Hct (34.0-46.0) % MCV (80.0-100.0) fL MCH (25.0-35.0) pg MCHC (31.0-37.0) g/dL RDW (11.5-15.5) % Plt Count (150-450) k/uL MPV Neutrophils % % Lymphocytes % % Monocytes % % Eosinophils % % Basophils % % Neutrophils # (1.3-7.7) k/uL Lymphocytes # (1.0-4.8) k/uL Monocytes # (0-1.0) k/uL Eosinophils # (0-0.7) k/uL Basophils # (0-0.2) k/uL Hypochromasia Poikilocytosis Anisocytosis Microcytosis PT (10.0-12.5) sec INR (<1.2) APTT (22.0-30.0) sec Sodium (137-145) mmol/L Potassium (3.5-5.1) mmol/L Chloride (98-107) mmol/L Carbon Dioxide (22-30) mmol/L Anion Gap mmol/L BUN (7-17) mg/dL Creatinine (0.52-1.04) mg/dL Est GFR (CKD-EPI)AfAm (>60 ml/min/1.73 sqM) Est GFR (CKD-EPI)NonAf (>60 ml/min/1.73 sqM) Glucose (74-99) mg/dL Calcium (8.4-10.2) mg/dL Total Bilirubin (0.2-1.3) mg/dL AST (14-36) U/L ALT (4-34) U/L Alkaline Phosphatase (38-126) U/L Total Protein (6.3-8.2) g/dL Albumin (3.5-5.0) g/dL Blood Type B Positive Blood Type Confirm B Positive Blood Type Recheck No Previous Record Bld Type Recheck Status CABO Indicated Antibody Screen NEGATIVE Spec Expiration Date 01/09/2024 - 2304 Disposition Clinical Impression: Anemia Disposition: HOME SELF-CARE Condition: Fair Instructions (If sedation given, give patient instructions): Gastrointestinal Bleeding (ED) Is patient prescribed a controlled substance at d/c from ED?: No Referrals: Benita Denise DO [Primary Care Provider] - 1-2 days
== END 2024-01-06 17:45 | disposition home or self-care (01) ==
LOC: EC 14:36
DX: D64.9 Anemia, unspecified (principal); Z90.49 Acquired absence of other specified parts of digestive tract
CPT/HCPCS: 36415; 80053; 85025; 85610; 85730; 86850; 86900; 86901; 99284